=== PATIENT | male | born 1950 | race Caucasian/White ===

== ENCOUNTER 2018-10-20 13:29 | Inpatient (IN) | payer MEDICARE ==
[~2018-10-20] VITALS: Ht 167.6 cm; Wt 87.3 kg
[~2018-10-20 13:29] MED LIST: ASPI81EC PO; CITA20 PO; DOCU100 PO; HYDACE5 PO; INSN100I SC; LISI5 PO; METF500 PO; MULVITMINF PO; OXYC10ER PO; PHENY100ER PO; SIMV80 PO; SULI200 PO
[2018-10-20 14:01] LABS: BASOPHILS ABSOLUTE AUTO 0.02 K/mm3 (0.00-0.23); BASOPHILS PERCENT AUTO 0 % (0-2); EOSINOPHILS ABSOLUTE AUTO 0.02 K/mm3 (0.00-0.68); EOSINOPHILS PERCENT AUTO 0 % (0-6); Hematocrit 38.2 % (37.0-53.0); Hemoglobin 11.7 g/dL (13.5-17.5); IMMATURE GRAN ABSOLUTE AUTO 0.05 K/mm3 (0.00-0.10); IMMATURE GRAN PERCENT AUTO 1 % (0-1); LYMPHOCYTES ABSOLUTE AUTO 0.37 K/mm3 (0.84-5.20); LYMPHOCYTES PERCENT AUTO 4 % (21-46); MONOCYTES ABSOLUTE AUTO 1.04 K/mm3 (0.16-1.47); MONOCYTES PERCENT AUTO 12 % (4-13); Mean Corpuscular HGB 25.8 pg (26.0-34.0); Mean Corpuscular HGB Conc 30.6 g/dL (31.5-36.5); Mean Corpuscular Volume 84 fL (80-100); Mean Platelet Volume 9.7 fL (9.1-12.4); NEUTROPHILS ABSOLUTE AUTO 6.98 K/mm3 (1.96-9.15); NEUTROPHILS PERCENT AUTO 82 % (41-73); Platelet Count 186 K/mm3 (150-400); RDW Coefficient Variation 18.3 % (11.7-14.2); Red Blood Cell Count 4.54 M/mm3 (4.30-5.90); White Blood Cell Count 8.48 K/mm3 (4.00-11.30)
[2018-10-20 14:41] LABS: Alanine Aminotransfer (ALT/SGP 44 U/L (12-78); Albumin, Blood 2.3 g/dL (3.4-5.0); Albumin/Globulin Ratio 0.5 (0.8-1.8); Alk Phos 199 U/L (50-136); Anion Gap 4 mmol/L (6-16); Aspartate Aminotrans (AST/SGOT 37 U/L (12-37); Bilirubin, Total 0.8 mg/dL (0.1-1.0); Blood Urea Nitrogen 24 mg/dL (8-24); Bun/Creatinine Ratio 19.5 (12.0-20.0); CO2, Blood 30 mmol/L (21-32); Calcium, Blood 8.5 mg/dL (8.5-10.1); Chloride, Blood 98 mmol/L (98-108); Creatinine, Blood 1.23 mg/dL (0.60-1.20); Glomerular Filtration Rate >60 (60-); Glucose, Blood 141 mg/dL (70-99); Potassium, Blood 4.4 mmol/L (3.5-5.5); Sodium, Blood 132 mmol/L (136-145); Total Protein, Blood 7.3 g/dL (6.4-8.2)
[2018-10-20] MEDS ORDERED: DICLOFENAC SOD100 G1 TOP (15:06)
[2018-10-20] MEDS ORDERED: FLUO60T TOP (15:06)
[2018-10-20] MEDS ORDERED: FURO20 PO (15:07)
[2018-10-20] MEDS ORDERED: Glucose4 GM PO (15:08)
[2018-10-20] MEDS ORDERED: Loratadine10 MG PO (15:09)
[2018-10-20] MEDS ORDERED: Ketoconazole120 ML TOP (15:09)
[2018-10-20] MEDS ORDERED: LIDO700A20 TOP (15:09)
[2018-10-20] MEDS ORDERED: Mupirocin22 GM TOP (15:10)
[2018-10-20] MEDS ORDERED: METF500C PO (15:10)
[2018-10-20] MEDS ORDERED: LOSA50 PO (15:10)
[2018-10-20] MEDS ORDERED: POTA10T PO (15:11)
[2018-10-20] MEDS ORDERED: ROSU5 PO (15:11)
[2018-10-20 15:13] LABS: International Normalized Ratio 1.22; Prothrombin Time Results 12.7 Sec (9.7-11.5)
[2018-10-20] MEDS ORDERED: SPIR25 PO (17:30)
[2018-10-20 17:33] LABS: Automated BF RBC Count 0.005 M/mm3 (0-0); Automated BF WBC Count 0.975 K/mm3 (0-999); Body Fluid WBC Count 975 /mm3 (0-999); RBC Count, Body Fluid 5000 /mm3 (0-0)
[2018-10-20] MEDS ORDERED: BASAGLAR K100 UNIT/1 SC ×2 (17:33)
[2018-10-20 17:50] LABS: Albumin, Body Fluid 0.7 g/dL; Glucose, Body Fluid 141 mg/dL; Lactate Dehydrogenase, Body Fl 73 U/L; Protein, Body Fluid 1.7 g/dL
--- NOTE | 2018-10-20 17:52 | NUR ---
ADMIT NEW ER ADMIT THIS SHIFT WITH PERITONITIS. PT DID HAVE A PARACENTESIS TODAY AND REPORTS THEY TOOK OFF >5L. PT REPORTS FEELING BETTER. DENIES SOB AND LUNGS ARE CLEAR. PT DENIES PAIN. INDEP IN ROOM WITH BRP. MEPILEX PLACED TO COCCYX FOR OPEN WOUND AND PICTURES IN CHART. VSS. DAUGHTER AT BEDSIDE FOR SUPPORT. ORIENTED TO CALL LIGHT AND ROOM.
[2018-10-20 18:58] LABS: pH, Body Fluid 7.9
[2018-10-20 19:00] LABS: Appearance, Body Fluid Cloudy (Clear)
[2018-10-20 19:08] LABS: Total Cell Count, Body Fluid 200
--- NOTE | 2018-10-21 04:27 | NUR ---
FORM COVERER SUMMARY PT AAOX4 AND INDEPENDENT IN ROOM. DR JAVIER IN TO SEE PT AT START OF SHIFT. NEW ORDERS ADDED BY DR JAVIER INCLUDING NPO STATUS, PT WILL HAVE EGD AT 1400. PT REFUSED BEDTIME DOSE OF LANTUS. PT STATES HE HASN'T BEEN TAKING HIS INSULIN AT HOME BECAUSE HIS LEVELS HAVE BEEN GOOD AND THAT HE HAS HAD ISSUES WAKING UP IN THE MORNING HYPOGLYCEMIC. VSS, WILL CONTINUE TO MONITOR.
[2018-10-21 05:44] LABS: Anion Gap 3 mmol/L (6-16); Blood Urea Nitrogen 22 mg/dL (8-24); CO2, Blood 30 mmol/L (21-32); Calcium, Blood 8.7 mg/dL (8.5-10.1); Chloride, Blood 98 mmol/L (98-108); Creatinine, Blood 1.16 mg/dL (0.60-1.20); Glomerular Filtration Rate >60 (60-); Glucose, Blood 97 mg/dL (70-99); Potassium, Blood 4.2 mmol/L (3.5-5.5); Sodium, Blood 131 mmol/L (136-145)
[2018-10-21 05:52] LABS: Percent Saturation 17.6 % (20.0-50.0)
[2018-10-21 05:53] LABS: Alpha Feto Protein, Tumor Mkr 1.9 ng/mL (0.0-8.0)
--- NOTE | 2018-10-21 15:10 | NUR ---
History, Chart, Medications and Allergies reviewed before start of procedure. Lungs clear T/O to Auscultation. Pre-Op teaching done. Pt verbalizes understanding. Patient confirms NPO status and agrees with scheduled surgery. Daughter, Rashmi, at bedside.
--- NOTE | 2018-10-21 15:24 | NUR ---
10/21/18 1524 Jesus Garza History, Chart, Medications and Allergies reviewed before start of procedure.MONITOR INTACT WITH CONTINUOUS PULSE OXIMETRY AND INTERMITTENT BP.3-LEAD EKG REVIEWED WITH PHYSICIAN PRIOR TO START OF PROCEDURE.O2 VIA N/C INTACT THROUGHOUT SEDATION/PROCEDURE. Patient confirms NPO status and agrees with scheduled surgery.See Anesthesia record.
--- NOTE | 2018-10-21 17:40 | NUR ---
PATIENT IS ALERT AND ORIENTED AND COOPERATIVE WITH CARE. PATIENT HAD AN ENDOSCOPY PERFORMED THIS AFTERNOON AND PLANS ON HAVING A COLONOSCOPY TOMORROW AFTERNOON. NO COMPLAINTS OF PAIN TODAY. HIS ABDOMEN IS DISTENDED. HE WILL BEGIN ON CLEAR LIQUIDS TONIGHT, WATER ONLY AT 7AM AND THEN NPO AT 1300. WILL POST OP VITALS ARE WNL SO FAR. WILL CONTINUE TO MONITOR.
--- NOTE | 2018-10-21 21:31 | NUR ---
FEVER GREGORIO LIN NP MADE AWARE OF ONSET OF FEVER THIS EVENING. FEVER IS LOW GRADE, PT HAS SOME CHILLS. TYLENOL [address] ORDERED X[address]. PER [address]. CONCEPCION COLVIN OKAY FOR ACHES AND PAIN.
--- NOTE | 2018-10-22 04:25 | NUR ---
SHIFT SUMMARY PT WAS FEBRILE THIS SHIFT, 500 MG OF TYLENOL EFFECTIVE. GREGORIO NEVESCARMINEMIKE IS AWARE OF FEVER. PT AFEBRILE AT THIS TIME. PT TEMPERATURE MONITORED T/O SHIFT. PT PLESANT AND COOPERATIVE WITH STAFF. HE DENIES PAIN AND STATES HE HAS HAD RELIEF SINCE HIS PARACENTESIS TWO DAYS AGO. PT DENIES SOB. ABD STILL DISTENDED AT THIS TIME. PLAN IS FOR COLONOSCOPY TODAY, NPO AT NOON. WATER AND ICE CHIPS ONLY. PT HAS RESTED MOST OF THE NIGHT. VITALS STABLE. WILL CONTINUE TO MONITOR AND REPORT TO ONCOMING RN.
[2018-10-22 05:09] LABS: HBSAG SCREEN Negative (Negative); HCV ANTIBODY <0.1 (0.0-0.9); HEP B CORE AB, TOT Negative (Negative)
[2018-10-22 05:18] LABS: International Normalized Ratio 1.3; Prothrombin Time Results 13.5 Sec (9.7-11.5)
[2018-10-22 05:24] LABS: Anion Gap 8 mmol/L (6-16); Blood Urea Nitrogen 18 mg/dL (8-24); Bun/Creatinine Ratio 18.9 (12.0-20.0); CO2, Blood 26 mmol/L (21-32); Calcium, Blood 8.4 mg/dL (8.5-10.1); Chloride, Blood 100 mmol/L (98-108); Creatinine, Blood 0.95 mg/dL (0.60-1.20); Glomerular Filtration Rate >60 (60-); Glucose, Blood 114 mg/dL (70-99); Potassium, Blood 4.3 mmol/L (3.5-5.5); Sodium, Blood 134 mmol/L (136-145)
[2018-10-22 07:08] LABS: COMPLEMENT C3, SERUM 88 mg/dL (82-167); COMPLEMENT C4, SERUM 16 mg/dL (14-44)
[2018-10-22 13:07] LABS: ANTI-DSDNA ANTIBODIES 1 IU/mL (0-9); RNP ANTIBODIES 0.4 AI (0.0-0.9); SJOGREN'S ANTI-SS-A 0.3 AI (0.0-0.9); SJOGREN'S ANTI-SS-B <0.2 AI (0.0-0.9); SMITH ANTIBODIES <0.2 AI (0.0-0.9)
--- NOTE | 2018-10-22 14:55 | NUR ---
PT DENIES PAIN. DENIES N/V. SEVERE ABD DISTENTION. FIRM TO PALPATE. PT TOLERATED GOLYTELY. PT'S STOOL CLEAR LIQUID YELLOW WITH A COUPLE FLECKS OF STOOL. PT TO HAVE COLONOSCOPY TODAY. DENIES SOB. RESP E/U ON RA. PT'S IV LEAKING THIS AFTERNOON. PT HARD IV START. INDEPENDENT IN THE ROOM. NO OTHER SIGNIFICANT CHANGES. REPORT GIVEN TO LAURA STEWART.
--- NOTE | 2018-10-22 15:51 | NUR ---
PATIENT DOWN TO DAY SURGERY WITH NESTOR SANCHEZ FOR COLONOSCOPY. ALBUMIN RUNNING WHILE TRANFERRED
--- NOTE | 2018-10-22 15:52 | NUR ---
ASSUMED CARE OF PATIENT. I AGREE WITH PREVIOUS LIFT ELECTRICIAN. NO CHANGES FROM PREVIOUS ASSESSMENT.
--- NOTE | 2018-10-22 15:55 | NUR ---
FROM MED FLOOR TO [facility]. ADMISSION STARTED
--- NOTE | 2018-10-22 16:41 | NUR ---
10/22/18 1641 Parish Lindo Bite Block Placed. Patient to ENDO 1. See Anesthesia record
--- NOTE | 2018-10-22 17:29 | NUR ---
SHIFT SUMMARY PATIENT DOWN IN DAY SURGERY FOR COLONOSCOPY AT THIS TIME. HE HAS DENIED COMPLAINTS PRIOR TO DEPARTURE. RECIEVED A NEW IV VIA ULTRASOUND.
--- NOTE | 2018-10-23 03:09 | NUR ---
SHIFT SUMMARY PATIENT HAD NO ACUTE CHANGES OBSERVED THIS SHIFT. REPORTS RESTING FROM COLONOSCOPY PROCEDURE. AXOX 3 AND INDEPENDENT IN THE ROOM. PIV REMAINS INTACT. IV ALBUMIN INFUSED X ONE. TAKES MEDICATION WHOLE WITH WATER. DENIES PAIN, SOB, AND N/V. VSS/AFEBRILE. COOPERATIVE WITH CARE. CALL LIGHT IN REACH. BED IN LOWEST POSITION. WILL CONTINUE TO MONITOR UNTIL DAY SHIFT NURSE ASSUMES CARE.
[2018-10-23 05:17] LABS: BASOPHILS ABSOLUTE AUTO 0.02 K/mm3 (0.00-0.23); BASOPHILS PERCENT AUTO 0 % (0-2); EOSINOPHILS ABSOLUTE AUTO 0.01 K/mm3 (0.00-0.68); EOSINOPHILS PERCENT AUTO 0 % (0-6); Hematocrit 34.5 % (37.0-53.0); Hemoglobin 10.4 g/dL (13.5-17.5); IMMATURE GRAN ABSOLUTE AUTO 0.04 K/mm3 (0.00-0.10); IMMATURE GRAN PERCENT AUTO 1 % (0-1); LYMPHOCYTES ABSOLUTE AUTO 0.37 K/mm3 (0.84-5.20); LYMPHOCYTES PERCENT AUTO 5 % (21-46); MONOCYTES ABSOLUTE AUTO 1.03 K/mm3 (0.16-1.47); MONOCYTES PERCENT AUTO 12 % (4-13); Mean Corpuscular HGB 25.6 pg (26.0-34.0); Mean Corpuscular HGB Conc 30.1 g/dL (31.5-36.5); Mean Corpuscular Volume 85 fL (80-100); Mean Platelet Volume 10.1 fL (9.1-12.4); NEUTROPHILS ABSOLUTE AUTO 6.81 K/mm3 (1.96-9.15); NEUTROPHILS PERCENT AUTO 82 % (41-73); Platelet Count 149 K/mm3 (150-400); RDW Coefficient Variation 17.9 % (11.7-14.2); RDW Standard Deviation 54.7 fL (35.1-46.3); Red Blood Cell Count 4.07 M/mm3 (4.30-5.90); White Blood Cell Count 8.28 K/mm3 (4.00-11.30)
[2018-10-23 05:31] LABS: International Normalized Ratio 1.3; Prothrombin Time Results 13.5 Sec (9.7-11.5)
[2018-10-23 05:37] LABS: Alanine Aminotransfer (ALT/SGP 31 U/L (12-78); Albumin, Blood 3.1 g/dL (3.4-5.0); Albumin/Globulin Ratio 0.8 (0.8-1.8); Alk Phos 152 U/L (50-136); Anion Gap 8 mmol/L (6-16); Aspartate Aminotrans (AST/SGOT 31 U/L (12-37); Bilirubin, Total 0.8 mg/dL (0.1-1.0); Blood Urea Nitrogen 20 mg/dL (8-24); Bun/Creatinine Ratio 18.3 (12.0-20.0); CO2, Blood 27 mmol/L (21-32); Calcium, Blood 8.4 mg/dL (8.5-10.1); Chloride, Blood 99 mmol/L (98-108); Creatinine, Blood 1.09 mg/dL (0.60-1.20); Glomerular Filtration Rate >60 (60-); Glucose, Blood 98 mg/dL (70-99); Potassium, Blood 4.3 mmol/L (3.5-5.5); Sodium, Blood 134 mmol/L (136-145); Total Protein, Blood 7.1 g/dL (6.4-8.2)
[2018-10-23 12:05] LABS: Automated BF RBC Count 0.003 M/mm3 (0-0); Automated BF WBC Count 2.181 K/mm3 (0-999); Body Fluid WBC Count 2181 /mm3 (0-999); RBC Count, Body Fluid 3000 /mm3 (0-0)
[2018-10-23 12:14] LABS: Appearance, Body Fluid Cloudy (Clear); Color, Body Fluid Yellow (None-Yellow)
[2018-10-23 12:42] LABS: Total Cell Count, Body Fluid 200
--- NOTE | 2018-10-23 17:59 | NUR ---
SHIFT SUMMARY PT UP TO BATHROOM INDEPENDENTLY TODAY. WENT FOR PARACENTESIS WITH 3.8 L REMOVED. STATED HIS ABDOMEN FELT BETTER. DAUGHTER AT BEDSIDE MOST OF DAY. DID HAVE GENERALIZED DISCOMFORT AND OBTAINED ORDER. REPORTED IT FELT BETTER. HAS HAD NO FURTHER PROBLEMS TODAY.
--- NOTE | 2018-10-24 03:38 | NUR ---
SHIFT SUMMARY PATIENT HAD NO ACUTE CHANGES OBSERVED. AXOX 3 AND INDEPENDENT. ALBUMIN X 2 INFUSED AND IV ABX PER ORDERS. DR JAVIER IN ROOM AT SHIFT CHANGE. DAUGHTER AND FAMILY PRESENT. TAKES MEDICATION WHOLE WITH WATER. PIV REMAINS INTACT. VSS/AFEBRILE. LIDOCAINE PATCH OFF. DENIES PAIN AT THIS TIME. PATIENT REPORTS HE WAS HAPPY TO SLEEP IN 1.5-2 HR BLOCKS. COOPERATIVE WITH CARE. CALL LIGHT IN REACH. BED IN LOWEST POSITION. WILL CONTINUE TO MONITOR UNTIL DAY SHIFT NURSE ASSUMES CARE.
[2018-10-24 05:00] LABS: BASOPHILS ABSOLUTE AUTO 0.02 K/mm3 (0.00-0.23); BASOPHILS PERCENT AUTO 0 % (0-2); EOSINOPHILS ABSOLUTE AUTO 0.02 K/mm3 (0.00-0.68); EOSINOPHILS PERCENT AUTO 0 % (0-6); Hematocrit 34.5 % (37.0-53.0); Hemoglobin 10.6 g/dL (13.5-17.5); IMMATURE GRAN ABSOLUTE AUTO 0.04 K/mm3 (0.00-0.10); IMMATURE GRAN PERCENT AUTO 1 % (0-1); LYMPHOCYTES ABSOLUTE AUTO 0.27 K/mm3 (0.84-5.20); LYMPHOCYTES PERCENT AUTO 4 % (21-46); MONOCYTES ABSOLUTE AUTO 0.82 K/mm3 (0.16-1.47); MONOCYTES PERCENT AUTO 11 % (4-13); Mean Corpuscular HGB 26.2 pg (26.0-34.0); Mean Corpuscular HGB Conc 30.7 g/dL (31.5-36.5); Mean Corpuscular Volume 85 fL (80-100); Mean Platelet Volume 9.9 fL (9.1-12.4); NEUTROPHILS ABSOLUTE AUTO 6.09 K/mm3 (1.96-9.15); NEUTROPHILS PERCENT AUTO 84 % (41-73); Platelet Count 124 K/mm3 (150-400); RDW Coefficient Variation 18.3 % (11.7-14.2); RDW Standard Deviation 55.7 fL (35.1-46.3); Red Blood Cell Count 4.05 M/mm3 (4.30-5.90); White Blood Cell Count 7.26 K/mm3 (4.00-11.30)
[2018-10-24 05:19] LABS: International Normalized Ratio 1.28; Prothrombin Time Results 13.3 Sec (9.7-11.5)
[2018-10-24 05:25] LABS: Alanine Aminotransfer (ALT/SGP 30 U/L (12-78); Albumin, Blood 3.8 g/dL (3.4-5.0); Albumin/Globulin Ratio 1.1 (0.8-1.8); Alk Phos 133 U/L (50-136); Anion Gap 9 mmol/L (6-16); Aspartate Aminotrans (AST/SGOT 27 U/L (12-37); Bilirubin, Total 0.8 mg/dL (0.1-1.0); Blood Urea Nitrogen 19 mg/dL (8-24); Bun/Creatinine Ratio 19.9 (12.0-20.0); CO2, Blood 27 mmol/L (21-32); Calcium, Blood 8.4 mg/dL (8.5-10.1); Chloride, Blood 96 mmol/L (98-108); Creatinine, Blood 0.96 mg/dL (0.60-1.20); Globulin, Blood 3.6 g/dL (2.2-4.0); Glomerular Filtration Rate >60 (60-); Glucose, Blood 78 mg/dL (70-99); Potassium, Blood 4.1 mmol/L (3.5-5.5); Sodium, Blood 132 mmol/L (136-145); Total Protein, Blood 7.4 g/dL (6.4-8.2)
--- NOTE | 2018-10-24 16:55 | NUR ---
PATIENT A/OX4, UP INDEPENDENTLY IN ROOM. 20G IV TO R AC SL BETWEEN ABX. TOLERATING DIET. DENIES ANY PAIN. DRESSING TO COCCYX WOUND CHANGED AFTER SHOWER TODAY. FAMILY AT BEDSIDE FOR MOST OF THE SHIFT. PATIENT IS CALM AND COOPERATIVE WITH CARE AND CALLS APPROPRIATELY FOR ASSISTANCE.
--- NOTE | 2018-10-25 04:57 | NUR ---
SHIFT SUMMARY PT PLEASANT AND COOPERATIVE. SLEPT WELL THROUGHOUT THE NIGHT. NO COMPLAINTS OF PAIN. JUST SOME SLIGHT DISCOMFORT IN HIS ABD. ABD IS DISTENDED, BUT PT REPORTS IMPROVEMENT. NEW IV PLACED TO LAC DUE TO RAC IV LEAKING. MEPILEX NOTED TO COCCYX. REMAINS CLEAN, DRY, AND INTACT. PT REPORTS IMPROVEMENT ALSO IN STRENGTH. PT HAS BEEN AMBULATING INDEPENDENTLY TO THE RESTROOM WITH NO PROBLEMS. VITAL SIGNS HAVE BEEN STABLE. NO ACUTE CHANGES THIS SHIFT.
[2018-10-25 05:25] LABS: BASOPHILS ABSOLUTE AUTO 0.02 K/mm3 (0.00-0.23); BASOPHILS PERCENT AUTO 0 % (0-2); EOSINOPHILS ABSOLUTE AUTO 0.01 K/mm3 (0.00-0.68); EOSINOPHILS PERCENT AUTO 0 % (0-6); Hematocrit 34.2 % (37.0-53.0); Hemoglobin 10.4 g/dL (13.5-17.5); IMMATURE GRAN ABSOLUTE AUTO 0.02 K/mm3 (0.00-0.10); IMMATURE GRAN PERCENT AUTO 0 % (0-1); LYMPHOCYTES ABSOLUTE AUTO 0.31 K/mm3 (0.84-5.20); LYMPHOCYTES PERCENT AUTO 4 % (21-46); MONOCYTES ABSOLUTE AUTO 0.85 K/mm3 (0.16-1.47); MONOCYTES PERCENT AUTO 12 % (4-13); Mean Corpuscular HGB 25.9 pg (26.0-34.0); Mean Corpuscular HGB Conc 30.4 g/dL (31.5-36.5); Mean Corpuscular Volume 85 fL (80-100); NEUTROPHILS ABSOLUTE AUTO 5.94 K/mm3 (1.96-9.15); NEUTROPHILS PERCENT AUTO 83 % (41-73); Platelet Count 131 K/mm3 (150-400); RDW Coefficient Variation 18.1 % (11.7-14.2); RDW Standard Deviation 56.4 fL (35.1-46.3); Red Blood Cell Count 4.02 M/mm3 (4.30-5.90); White Blood Cell Count 7.15 K/mm3 (4.00-11.30)
[2018-10-25 05:42] LABS: International Normalized Ratio 1.36
[2018-10-25 06:10] LABS: Alanine Aminotransfer (ALT/SGP 37 U/L (12-78); Albumin, Blood 4.2 g/dL (3.4-5.0); Albumin/Globulin Ratio 1.2 (0.8-1.8); Alk Phos 134 U/L (50-136); Anion Gap 6 mmol/L (6-16); Aspartate Aminotrans (AST/SGOT 34 U/L (12-37); Bilirubin, Total 0.9 mg/dL (0.1-1.0); Blood Urea Nitrogen 21 mg/dL (8-24); Bun/Creatinine Ratio 20.8 (12.0-20.0); CO2, Blood 27 mmol/L (21-32); Calcium, Blood 8.9 mg/dL (8.5-10.1); Chloride, Blood 97 mmol/L (98-108); Creatinine, Blood 1.01 mg/dL (0.60-1.20); Globulin, Blood 3.4 g/dL (2.2-4.0); Glomerular Filtration Rate >60 (60-); Glucose, Blood 105 mg/dL (70-99); Potassium, Blood 4.7 mmol/L (3.5-5.5); Sodium, Blood 130 mmol/L (136-145); Total Protein, Blood 7.6 g/dL (6.4-8.2)
[2018-10-25 18:19] LABS: C DIFFICILE BY DNA AMP Positive (Negative)
--- NOTE | 2018-10-25 18:35 | NUR ---
PATIENT A/OX4, UP INDPENDENTLY IN ROOM. STOOL SAMPLE SENT TO LAB AND CAME BACK POSITIVE FOR C-DIFF. PATIENT PLACED IN CONTACT ENTERIC PRECAUTIONS. 20G IV TO L AC WNL AND SL. ROCEPHIN DAILY TO TREAT BACTERIAL PERITONITIS AND PO VANCO STARTED TO TREAT C-DIFF. PATIENT GIVEN TRAMADOL X1 THIS SHIFT TO BACK PAIN WITH GOOD RELIEF. PATIENT IS CALM AND COOPERATIVE WITH CARE AND USES CALL LIGHT APPROPRIATELY FOR ASSISTANCE.
--- NOTE | 2018-10-26 04:41 | NUR ---
SHIFT SUMMARY PT'S ABD APPEARS MORE DISTENDED THIS EVENING COMPARED TO YESTERDAY EVENING. PT DOES REPORT SOME MILD ABD DISCOMFORT BUT NO MORE THAN PREVIOUSLY. PT SLEPT THROUGH MUCH OF THE NIGHT. INDEPENDENT TO THE RESTROOM. REPORTED 3 LOOSE STOOLS TONIGHT. ORAL VANCO STARTED. OTHERWISE NO ACUTE CHANGES. VSS. WILL CONTINUE TO MONITOR AND REPORT TO DAY RN.
[2018-10-26 05:14] LABS: BASOPHILS ABSOLUTE AUTO 0.01 K/mm3 (0.00-0.23); BASOPHILS PERCENT AUTO 0 % (0-2); EOSINOPHILS ABSOLUTE AUTO 0.05 K/mm3 (0.00-0.68); EOSINOPHILS PERCENT AUTO 1 % (0-6); Hematocrit 32.7 % (37.0-53.0); Hemoglobin 10.4 g/dL (13.5-17.5); IMMATURE GRAN ABSOLUTE AUTO 0.03 K/mm3 (0.00-0.10); IMMATURE GRAN PERCENT AUTO 0 % (0-1); LYMPHOCYTES ABSOLUTE AUTO 0.28 K/mm3 (0.84-5.20); LYMPHOCYTES PERCENT AUTO 4 % (21-46); MONOCYTES ABSOLUTE AUTO 0.94 K/mm3 (0.16-1.47); MONOCYTES PERCENT AUTO 13 % (4-13); Mean Corpuscular HGB 26.2 pg (26.0-34.0); Mean Corpuscular HGB Conc 31.8 g/dL (31.5-36.5); Mean Platelet Volume 9.8 fL (9.1-12.4); NEUTROPHILS ABSOLUTE AUTO 6.04 K/mm3 (1.96-9.15); NEUTROPHILS PERCENT AUTO 82 % (41-73); Platelet Count 133 K/mm3 (150-400); RDW Coefficient Variation 18.1 % (11.7-14.2); RDW Standard Deviation 54.2 fL (35.1-46.3); Red Blood Cell Count 3.97 M/mm3 (4.30-5.90); White Blood Cell Count 7.35 K/mm3 (4.00-11.30)
[2018-10-26 05:18] LABS: Mean Corpuscular Volume 82 fL (80-100)
[2018-10-26 05:28] LABS: International Normalized Ratio 1.34; Prothrombin Time Results 13.8 Sec (9.7-11.5)
[2018-10-26 05:48] LABS: Alanine Aminotransfer (ALT/SGP 30 U/L (12-78); Albumin, Blood 3.8 g/dL (3.4-5.0); Albumin/Globulin Ratio 1.2 (0.8-1.8); Alk Phos 124 U/L (50-136); Anion Gap 11 mmol/L (6-16); Aspartate Aminotrans (AST/SGOT 29 U/L (12-37); Bilirubin, Total 0.8 mg/dL (0.1-1.0); Blood Urea Nitrogen 29 mg/dL (8-24); Bun/Creatinine Ratio 28.7 (12.0-20.0); CO2, Blood 24 mmol/L (21-32); Calcium, Blood 8.9 mg/dL (8.5-10.1); Chloride, Blood 95 mmol/L (98-108); Creatinine, Blood 1.01 mg/dL (0.60-1.20); Globulin, Blood 3.3 g/dL (2.2-4.0); Glomerular Filtration Rate >60 (60-); Glucose, Blood 92 mg/dL (70-99); Potassium, Blood 4.4 mmol/L (3.5-5.5); Sodium, Blood 130 mmol/L (136-145); Total Protein, Blood 7.1 g/dL (6.4-8.2)
[2018-10-26] MEDS ORDERED: FURO40 PO (13:07)
[2018-10-26] MEDS ORDERED: Aldactone100 MG PO (13:13)
[2018-10-26] MEDS ORDERED: VANCOCIN HCL125 MG PO (13:14)
[2018-10-26] MEDS ORDERED: Florastor250 MG PO (13:17)
[2018-10-26] MEDS ORDERED: CIPR500 PO (13:19)
--- NOTE | 2018-10-26 15:00 | NUR ---
PATIENT D/C'D TO HOME WITH DAUGHTER. RX MEDICATIONS FAXED TO [facility] AND SCRIPT FOR 8 CAPSULES OF VANCOMYCIN [facility]. D/C INSTRUCTIONS AND EDUCATION DISCUSSED WITH PATIENT AND DAUGHTER AND COPY PROVIDED. PATIENT DENIES ANY FURTHER QUESTIONS OR CONCERNS.
== END 2018-10-26 15:21 | disposition home or self-care (01) | DRG 372 ==
LOC: ER 13:29 → MEDS 15:01 → ERHOLD 15:01 → MEDS 16:55 → ENPENDDIS 10-26 11:08 → MEDS 10-26 15:21
PROVIDERS: Internal Medicine Gastroenterology; Physician Assistant; ADMIT Internal Medicine
PROC: 0W9G3ZZ Drainage of Peritoneal Cavity, Percutaneous Approach (ICD-10-PCS; 2018-10-20)
PROC: 0DD68ZX Extraction of Stomach, Via Natural or Artificial Opening Endoscopic, Diagnostic (ICD-10-PCS; 2018-10-21)
PROC: 0DBM8ZX Excision of Descending Colon, Via Natural or Artificial Opening Endoscopic, Diagnostic (ICD-10-PCS; 2018-10-21)
PROC: 0DDB8ZX Extraction of Ileum, Via Natural or Artificial Opening Endoscopic, Diagnostic (ICD-10-PCS; 2018-10-21)
PROC: 0DD98ZX Extraction of Duodenum, Via Natural or Artificial Opening Endoscopic, Diagnostic (ICD-10-PCS; principal; 2018-10-21 15:30)
DX: K65.2 Spontaneous bacterial peritonitis (principal); K76.6 Portal hypertension; E87.1 Hypo-osmolality and hyponatremia; I85.00 Esophageal varices without bleeding; A04.72 Enterocolitis due to Clostridium difficile, not specified as recurrent; E11.9 Type 2 diabetes mellitus without complications; I10 Essential (primary) hypertension; Z79.4 Long term (current) use of insulin; K74.60 Unspecified cirrhosis of liver; Z87.891 Personal history of nicotine dependence; E78.5 Hyperlipidemia, unspecified; F43.10 Post-traumatic stress disorder, unspecified; K75.81 Nonalcoholic steatohepatitis (NASH); Z68.33 Body mass index [BMI] 33.0-33.9, adult; K31.9 Disease of stomach and duodenum, unspecified; K63.5 Polyp of colon; D17.5 Benign lipomatous neoplasm of intra-abdominal organs; K57.30 Diverticulosis of large intestine without perforation or abscess without bleeding; K64.8 Other hemorrhoids; K55.20 Angiodysplasia of colon without hemorrhage; K52.9 Noninfective gastroenteritis and colitis, unspecified; D63.8 Anemia in other chronic diseases classified elsewhere
CPT/HCPCS: 36415; 49083; 80048; 80053; 82042; 82103; 82104; 82105; 82728; 82945; 82947; 83516; 83540; 83550; 83615; 83986; 84157; 85025; 85610; 86038; 86160; 86225; 86235; 86317; 86704; 86708; 86803; 87015; 87070; 87102; 87116; 87205; 87206; 87324; 87340; 87493; 88108; 88305; 88342; 89051; 96365-59; 96366-59; 96375-59; 99285-25; J0696; J2704; J7120; P9046

== ENCOUNTER 2018-11-02 13:22 | Inpatient (IN) | payer MEDICARE ==
[~2018-11-02] VITALS: Ht 170.2 cm; Wt 84.8 kg
[~2018-11-02 13:22] MED LIST changes: +Aldactone100 MG PO; +BASAGLAR K100 UNIT/1 SC; +CIPR500 PO; +DICLOFENAC SOD100 G1 TOP; +FLUO60T TOP; +FURO20 PO; +FURO40 PO; +Florastor250 MG PO; +Glucose4 GM PO; +Ketoconazole120 ML TOP; +LIDO700A20 TOP; +LOSA50 PO; +Loratadine10 MG PO; +METF500C PO; +Mupirocin22 GM TOP; +POTA10T PO; +ROSU5 PO; +SPIR25 PO; +VANCOCIN HCL125 MG PO
[2018-11-02 14:14] LABS: BASOPHILS ABSOLUTE AUTO 0.02 K/mm3 (0.00-0.23); BASOPHILS PERCENT AUTO 0 % (0-2); EOSINOPHILS PERCENT AUTO 0 % (0-6); Hematocrit 34.1 % (37.0-53.0); Hemoglobin 12.1 g/dL (13.5-17.5); IMMATURE GRAN ABSOLUTE AUTO 0.11 K/mm3 (0.00-0.10); IMMATURE GRAN PERCENT AUTO 1 % (0-1); LYMPHOCYTES ABSOLUTE AUTO 0.28 K/mm3 (0.84-5.20); LYMPHOCYTES PERCENT AUTO 2 % (21-46); MONOCYTES PERCENT AUTO 9 % (4-13); Mean Corpuscular HGB 29.6 pg (26.0-34.0); Mean Corpuscular HGB Conc 35.5 g/dL (31.5-36.5); Mean Corpuscular Volume 83 fL (80-100); Mean Platelet Volume 9.9 fL (9.1-12.4); NEUTROPHILS ABSOLUTE AUTO 11.94 K/mm3 (1.96-9.15); NEUTROPHILS PERCENT AUTO 88 % (41-73); Platelet Count 278 K/mm3 (150-400); RDW Coefficient Variation 20.1 % (11.7-14.2); RDW Standard Deviation 50.6 fL (35.1-46.3); Red Blood Cell Count 4.09 M/mm3 (4.30-5.90); White Blood Cell Count 13.55 K/mm3 (4.00-11.30)
[2018-11-02 14:33] LABS: Albumin, Blood 3.2 g/dL (3.4-5.0); Albumin/Globulin Ratio 0.7 (0.8-1.8); Bilirubin, Total 0.7 mg/dL (0.1-1.0); Bun/Creatinine Ratio 30.8 (12.0-20.0); Calcium, Blood 8.8 mg/dL (8.5-10.1); Creatinine, Blood 2.86 mg/dL (0.60-1.20); Globulin, Blood 4.5 g/dL (2.2-4.0); Potassium, Blood 5.7 mmol/L (3.5-5.5); Total Protein, Blood 7.7 g/dL (6.4-8.2)
[2018-11-02] MEDS ORDERED: Bactrim Ds Tab1 EACH PO (15:51)
[2018-11-02] MEDS ORDERED: LIDO700A20 TOP (15:52)
[2018-11-02] MEDS ORDERED: ACET500 PO (15:53)
--- NOTE | 2018-11-02 17:53 | NUR ---
PT ADMITTED PT ADMITTED AT 1740. PT & FAMILY ORIENTED TO ROOM. CALL LIGHT IN REACH. PT HR ELEVATED AT 117. OTHER VITALS STABLE. DR. GREEN CALLED & NOTIFIED. EKG & TELE ORDERED. ACHS & LOW SLIDING SCALE ORDERED. WILL CONTINUE TO MONITOR.
[2018-11-02 20:15] LABS: Bun/Creatinine Ratio 34.1 (12.0-20.0); Calcium, Blood 8.1 mg/dL (8.5-10.1); Creatinine, Blood 2.58 mg/dL (0.60-1.20); Potassium, Blood 5.6 mmol/L (3.5-5.5)
--- NOTE | 2018-11-03 03:20 | NUR ---
NOC SHIFT SUMMARY PT ADMITTED ON PREVIOUS SHIFT FOR ARF, DIARRHEA, AND SEPSIS. HE IS AAOX4 RESP ARE EVEN AND UNLABORED. TELE ON AND PER WOOD FLOUR MILLER IS PRESENTLY SINUS RHYTHM AT 90. PLEASANT AND COOPERATIVE WITH CARE. DAUGHTER IS STAYING THE NIGHT IN ROOM WITH PT. HE HAS HAD NUMEROUS EPISODES OF DIARRHEA THIS NIGHT EVERY FEW HOURS HE IS UP TO THE TOILET AGAIN. HE IS CONTINENT. TREATED PER EMAR FOR ACHES AND PAINS WITH TYLENOL. AT PRESENT HE IS LAYING BACK IN BED AND APPEARS IN NO ACUTE DISTRESS. VSS. WILL CONTINUE TO MONITOR.
[2018-11-03 08:39] LABS: Bun/Creatinine Ratio 35.5 (12.0-20.0); Calcium, Blood 6.8 mg/dL (8.5-10.1); Creatinine, Blood 2.14 mg/dL (0.60-1.20)
--- NOTE | 2018-11-03 17:36 | NUR ---
SUMMARY PT IS A/O X4, PLEASANT/COOPERATIVE AFFECT, UP TO BR IND. STATE POOR APPETITE, BREEDER SERVICE TECHNICIAN IN TODAY ADD NUTRITION SUPPLEMENT DRINKS TO TRAYS. C-DIFF ISOLATION CLEARED TODAY. HE STATE STOOLS PARTLY FORMED, LESS FREQUENT. HX CIRRHOSIS, ASCITES. ABD FIRM, ROUND, DISTENDED. GI CONSULT w DR ROJAS THIS AFTERNOON. DX NIRANJAN, GFR 33, NA+ LOW @ 131, DR GREEN ORDER NEPHRO CONSULT w DR CINTRON, IN TO SEE HIM THIS AFTERNOON, CHANGE IVF TO 1/2 NS @ 125 ML/HR. VSS.
[2018-11-03 18:21] LABS: Albumin, Blood 2.9 g/dL (3.4-5.0); Anion Gap 12 mmol/L (6-16); Blood Urea Nitrogen 83 mg/dL (8-24); Bun/Creatinine Ratio 35.6 (12.0-20.0); CO2, Blood 15 mmol/L (21-32); Calcium, Blood 8.3 mg/dL (8.5-10.1); Chloride, Blood 96 mmol/L (98-108); Creatinine, Blood 2.33 mg/dL (0.60-1.20); Glomerular Filtration Rate 30 (60-); Glucose, Blood 119 mg/dL (70-99); Phosphorus, Blood 3.2 mg/dL (2.5-4.9); Sodium, Blood 123 mmol/L (136-145)
[2018-11-03 19:30] LABS: Bilirubin, Urine Neg (Neg); Blood, Urine 1+ (Neg); Glucose Qualitative, Urine Neg (Neg); Ketones, Urine Neg (Neg); Leukocyte Esterase, Urine Neg (Neg); Nitrite, Urine Neg (Neg); Protein, Urine 1+ (Neg); Specific Gravity, Urine 1.015 (1.003-1.022); Urobilinogen, Urine NORM (Normal)
[2018-11-03 19:31] LABS: Appearance, Urine Clear (Clear); Color, Urine Yellow (P-Yellow)
[2018-11-03 19:36] LABS: Bacteria Mod /hpf; Squamous Epithelial Cells Rare /hpf (Few); White Blood Cells, Urine 0-2 /hpf (0-5)
[2018-11-04 01:12] LABS: Adenovirus F 40/41 Not Detected (NOT DETECT); Astrovirus Not Detected (NOT DETECT); Campylobacter Sp Not Detected (NOT DETECT); Cryptosporidium Not Detected (NOT DETECT); Cyclospora Cayetanensis Not Detected (NOT DETECT); E. Coli O157 Not Detected (NOT DETECT); Entamoeba Histolytica Not Detected (NOT DETECT); Enteroaggregative E. coli-EAEC Not Detected (NOT DETECT); Enteropathogenic E. coli-EPEC Not Detected (NOT DETECT); Enterotoxigenic E. coli-ETEC Not Detected (NOT DETECT); Giardia Lamblia Not Detected (NOT DETECT); Norovirus GI/GII Not Detected (NOT DETECT); Plesiomonas Shigelloides Not Detected (NOT DETECT); Rotavirus A Not Detected (NOT DETECT); Salmonella Sp Not Detected (NOT DETECT); Sapovirus Not Detected (NOT DETECT); Shiga Toxin-prod E. coli-STEC Not Detected (NOT DETECT); Shigella/Enteroin E. coli-EIEC Not Detected (NOT DETECT); Vibrio Cholerae Not Detected (NOT DETECT); Vibrio Sp Not Detected (NOT DETECT); Yersinia Enterocolitica Not Detected (NOT DETECT)
[2018-11-04 04:41] LABS: BASOPHILS ABSOLUTE AUTO 0.01 K/mm3 (0.00-0.23); BASOPHILS PERCENT AUTO 0 % (0-2); EOSINOPHILS ABSOLUTE AUTO 0.02 K/mm3 (0.00-0.68); EOSINOPHILS PERCENT AUTO 0 % (0-6); Hematocrit 33.6 % (37.0-53.0); Hemoglobin 10.9 g/dL (13.5-17.5); IMMATURE GRAN PERCENT AUTO 1 % (0-1); LYMPHOCYTES ABSOLUTE AUTO 0.19 K/mm3 (0.84-5.20); LYMPHOCYTES PERCENT AUTO 2 % (21-46); MONOCYTES ABSOLUTE AUTO 0.78 K/mm3 (0.16-1.47); MONOCYTES PERCENT AUTO 7 % (4-13); Mean Corpuscular HGB 26.2 pg (26.0-34.0); Mean Corpuscular HGB Conc 32.4 g/dL (31.5-36.5); Mean Corpuscular Volume 81 fL (80-100); Mean Platelet Volume 9.5 fL (9.1-12.4); NEUTROPHILS ABSOLUTE AUTO 9.38 K/mm3 (1.96-9.15); NEUTROPHILS PERCENT AUTO 90 % (41-73); Platelet Count 171 K/mm3 (150-400); RDW Standard Deviation 51.8 fL (35.1-46.3); Red Blood Cell Count 4.16 M/mm3 (4.30-5.90); White Blood Cell Count 10.48 K/mm3 (4.00-11.30)
[2018-11-04 05:02] LABS: Albumin, Blood 3.4 g/dL (3.4-5.0); Albumin/Globulin Ratio 0.9 (0.8-1.8); Bilirubin, Total 0.7 mg/dL (0.1-1.0); Bun/Creatinine Ratio 35.5 (12.0-20.0); Calcium, Blood 8.4 mg/dL (8.5-10.1); Creatinine, Blood 2.17 mg/dL (0.60-1.20); Globulin, Blood 3.6 g/dL (2.2-4.0); Potassium, Blood 4.8 mmol/L (3.5-5.5)
[2018-11-04 05:06] LABS: Thyroid Stimulating Hormone 0.587 uIU/mL (0.360-4.800)
--- NOTE | 2018-11-04 06:33 | NUR ---
SHIFT SUMMARY NO ACUTE EVENTS OVERNIGHT. PATIENT UP AD LUCERO IN ROOM TO BATHROOM. PATIENT IV BEGAN LEAKING AND A NEW IV STARTED. PATIENT PLEASANT WITH NO COMPLAINTS.
[2018-11-04 12:34] LABS: Automated BF RBC Count 0.003 M/mm3 (0-0); Automated BF WBC Count 0.461 K/mm3 (0-999); Body Fluid WBC Count 461 /mm3 (0-999); RBC Count, Body Fluid 3000 /mm3 (0-0)
[2018-11-04 13:08] LABS: Appearance, Body Fluid Hazy (Clear); Color, Body Fluid Yellow (None-Yellow)
[2018-11-04 13:41] LABS: Total Cell Count, Body Fluid 100
--- NOTE | 2018-11-04 18:03 | NUR ---
SUMMARY PT IS A/O X4, IND IN ROOM. PLEASANT/COOPERATIVE AFFECT. HE STATE POOR SLEEP LAST, STATE FATIGUE T/O DAY. HE HAS TRIED TO NAP BUT HAS HAD MANY FAMILY, FRIENDS VISIT. APPROX 1100 TODAY HE WENT OUT TO RADIOLOGY FOR US GUIDED PARACENTESIS, 4.5L TAKEN OFF. HE STATE ABD "FULLNESS", TENDERNESS RELIEF. DR CINTRON IN TO SEE HIM THIS AFTERNOON, NO NEW ORDERS, NS CONTINUES @ 75 ML/HR. DR ROJAS IN LATE AFTERNOON, ORDER ALBUMEN. ACCURATE STANDING WT OBTAINED THIS AM PRIOR TO PARACENTESIS. ACCURATE I&O'S DIFFICULT TO OBTAIN D/T BOWEL HABITS. VSS.
[2018-11-05 04:43] LABS: BASOPHILS PERCENT AUTO 0 % (0-2); EOSINOPHILS PERCENT AUTO 0 % (0-6); Hematocrit 34.2 % (37.0-53.0); IMMATURE GRAN ABSOLUTE AUTO 0.12 K/mm3 (0.00-0.10); IMMATURE GRAN PERCENT AUTO 1 % (0-1); LYMPHOCYTES ABSOLUTE AUTO 0.23 K/mm3 (0.84-5.20); LYMPHOCYTES PERCENT AUTO 2 % (21-46); MONOCYTES ABSOLUTE AUTO 0.85 K/mm3 (0.16-1.47); MONOCYTES PERCENT AUTO 7 % (4-13); Mean Corpuscular HGB Conc 32.2 g/dL (31.5-36.5); Mean Corpuscular Volume 81 fL (80-100); Mean Platelet Volume 9.6 fL (9.1-12.4); NEUTROPHILS ABSOLUTE AUTO 11.25 K/mm3 (1.96-9.15); NEUTROPHILS PERCENT AUTO 90 % (41-73); Platelet Count 212 K/mm3 (150-400); RDW Coefficient Variation 18.3 % (11.7-14.2); RDW Standard Deviation 52.7 fL (35.1-46.3); Red Blood Cell Count 4.23 M/mm3 (4.30-5.90); White Blood Cell Count 12.45 K/mm3 (4.00-11.30)
--- NOTE | 2018-11-05 05:01 | NUR ---
SHIFT SUMMARY PATEINT SLEPT OFF AND ON THROUGH THE NIGHT. ABD WITH SEVERE DISTENTION AFTER 4.5L REMOVED YESTERDAY WITH PARACENTESIS. PATIENT HAD NO COMPLAINTS OR CONCERNS. IV PATENT WITH NO S/S OF INFILTRATION/INFECTION.
[2018-11-05 05:05] LABS: Alanine Aminotransfer (ALT/SGP 31 U/L (12-78); Albumin, Blood 3.6 g/dL (3.4-5.0); Albumin/Globulin Ratio 1.1 (0.8-1.8); Alk Phos 191 U/L (50-136); Anion Gap 9 mmol/L (6-16); Aspartate Aminotrans (AST/SGOT 26 U/L (12-37); Bilirubin, Total 0.8 mg/dL (0.1-1.0); Blood Urea Nitrogen 65 mg/dL (8-24); Bun/Creatinine Ratio 33.3 (12.0-20.0); CO2, Blood 18 mmol/L (21-32); Calcium, Blood 8.5 mg/dL (8.5-10.1); Chloride, Blood 100 mmol/L (98-108); Creatinine, Blood 1.95 mg/dL (0.60-1.20); Globulin, Blood 3.4 g/dL (2.2-4.0); Glomerular Filtration Rate 36 (60-); Glucose, Blood 117 mg/dL (70-99); Magnesium, Blood 2.1 mg/dL (1.6-2.4); Phosphorus, Blood 2.5 mg/dL (2.5-4.9); Potassium, Blood 5.3 mmol/L (3.5-5.5); Sodium, Blood 127 mmol/L (136-145)
[2018-11-05 05:12] LABS: Percent Saturation 12.4 % (20.0-50.0)
--- NOTE | 2018-11-05 17:15 | NUR ---
DR VEGA NOTIFIED EARLIER REGARDING PT BEING TACHY AT 120, DR VEGA ORDERED PROPRANOLOL BUT DR ROJAS LATER DC'D IT. PT REMAINS TACHY AT 119, SPOKE WITH DR VEGA WHO HAS ORDERED METOPROLOL 12.5MG PO BID AT THIS TIME.
--- NOTE | 2018-11-05 17:21 | NUR ---
SHIFT SUMMARY- PT A/OX4 BUT DROWSY T/O MOST OF THE DAY, PT AWAKES TO VERBAL STIMULI BUT FALLS ASLEEP DURING CONVERSATION. PT INDEP TO BATHROOM. PT CONT TO HAVE LOOSE BM'S. ABD DISTENDED. LS CLEAR, ON RA. PT TACHY AT 120, STARTED ON PO METOPROLOL. POOR PO INTAKE, GLUCERNA GIVEN. PT REMAINS ON NS AT 75ML/HR, ALBUMIN GIVEN TODAY. PT DENIES ANY PAIN OR OTHER COMPLAINTS T/O THE DAY. NO OTHER ACUTE CHANGES THIS SHIFT.
[2018-11-06 05:45] LABS: BASOPHILS ABSOLUTE AUTO 0.01 K/mm3 (0.00-0.23); BASOPHILS PERCENT AUTO 0 % (0-2); EOSINOPHILS PERCENT AUTO 0 % (0-6); Hematocrit 38.9 % (37.0-53.0); Hemoglobin 12.3 g/dL (13.5-17.5); IMMATURE GRAN ABSOLUTE AUTO 0.15 K/mm3 (0.00-0.10); IMMATURE GRAN PERCENT AUTO 1 % (0-1); LYMPHOCYTES ABSOLUTE AUTO 0.28 K/mm3 (0.84-5.20); LYMPHOCYTES PERCENT AUTO 2 % (21-46); MONOCYTES ABSOLUTE AUTO 1.01 K/mm3 (0.16-1.47); MONOCYTES PERCENT AUTO 6 % (4-13); Mean Corpuscular HGB 25.6 pg (26.0-34.0); Mean Corpuscular HGB Conc 31.6 g/dL (31.5-36.5); Mean Corpuscular Volume 81 fL (80-100); Mean Platelet Volume 9.6 fL (9.1-12.4); NEUTROPHILS ABSOLUTE AUTO 14.43 K/mm3 (1.96-9.15); NEUTROPHILS PERCENT AUTO 91 % (41-73); Platelet Count 209 K/mm3 (150-400); RDW Coefficient Variation 18.6 % (11.7-14.2); RDW Standard Deviation 53.3 fL (35.1-46.3); Red Blood Cell Count 4.81 M/mm3 (4.30-5.90); White Blood Cell Count 15.88 K/mm3 (4.00-11.30)
[2018-11-06 06:01] LABS: Albumin, Blood 3.8 g/dL (3.4-5.0); Anion Gap 10 mmol/L (6-16); Blood Urea Nitrogen 69 mg/dL (8-24); Bun/Creatinine Ratio 39.9 (12.0-20.0); CO2, Blood 18 mmol/L (21-32); Calcium, Blood 8.8 mg/dL (8.5-10.1); Chloride, Blood 99 mmol/L (98-108); Creatinine, Blood 1.73 mg/dL (0.60-1.20); Glomerular Filtration Rate 42 (60-); Glucose, Blood 122 mg/dL (70-99); Phosphorus, Blood 2.8 mg/dL (2.5-4.9); Potassium, Blood 5.1 mmol/L (3.5-5.5); Sodium, Blood 127 mmol/L (136-145)
--- NOTE | 2018-11-06 09:13 | NUR ---
CALLED ABOUT INDIGESTION WITH PATIENT NORMALLT TAKING TUMS OR ROLAIDS AT HOME. OK TO ORDER. ALSO ADVISED; APPEARS DEPRESSED, POSSIBLE ASCITES WORSE THAN BEFORE PERICENTESIS AND HEART RATE RUNNING HIGH 90'S TO 100-120. GIVEN LOPRESSOR. NO FURTHER ORDERS.
--- NOTE | 2018-11-06 17:49 | NUR ---
ALERT. ORIENTED. DROWSEY. POOR APPETITE. AWARE OF TACHY HEART RATE <110. INDEPENDENT IN ROOM TO BATHROOM. ABD APPEARS LITTLE BIGGER THAN BEGINNING OF SHIFT. AWARE OF POSSIBLE ANOTHER PERICENTESIS. IV PATENT. MEDICATED FOR PAIN W/TYLENOL W/GOOD RESULTS. WCTM.
--- NOTE | 2018-11-07 03:26 | NUR ---
SHIFT SUMMARY PT CONTINUES TO HAVE FREQUENT LOOSE STOOLS. PT IS ALERT, ORIENTED, AND UP TO THE BATHROOM INDEPENDENTLY. FLUIDS CONTINUE TO RUN ORDERED. IV HAS BEEN RESECURED, BC WHEN PT WAS TOILETING HIMSELF, HE PULLED THE PLUG OUT OF THE UNUSED IV PORT AND BLED A BIT. IV DRESSING WAS CHANGED AND THE OLD TUBING WAS REPLACED. ASCITES IS STILL PRESENT. NO COMPLAINTS OF SOB. VSS. WILL CONTINUE TO MONITOR.
[2018-11-07 05:14] LABS: BASOPHILS ABSOLUTE AUTO 0.01 K/mm3 (0.00-0.23); BASOPHILS PERCENT AUTO 0 % (0-2); EOSINOPHILS PERCENT AUTO 0 % (0-6); Hematocrit 35.1 % (37.0-53.0); Hemoglobin 11.1 g/dL (13.5-17.5); IMMATURE GRAN ABSOLUTE AUTO 0.24 K/mm3 (0.00-0.10); IMMATURE GRAN PERCENT AUTO 1 % (0-1); LYMPHOCYTES ABSOLUTE AUTO 0.21 K/mm3 (0.84-5.20); LYMPHOCYTES PERCENT AUTO 1 % (21-46); MONOCYTES ABSOLUTE AUTO 1.01 K/mm3 (0.16-1.47); MONOCYTES PERCENT AUTO 6 % (4-13); Mean Corpuscular HGB 26.2 pg (26.0-34.0); Mean Corpuscular HGB Conc 31.6 g/dL (31.5-36.5); Mean Corpuscular Volume 83 fL (80-100); Mean Platelet Volume 9.8 fL (9.1-12.4); NEUTROPHILS ABSOLUTE AUTO 15.22 K/mm3 (1.96-9.15); NEUTROPHILS PERCENT AUTO 91 % (41-73); Platelet Count 188 K/mm3 (150-400); RDW Coefficient Variation 19.4 % (11.7-14.2); RDW Standard Deviation 54.7 fL (35.1-46.3); Red Blood Cell Count 4.24 M/mm3 (4.30-5.90); White Blood Cell Count 16.69 K/mm3 (4.00-11.30)
[2018-11-07 05:42] LABS: Albumin/Globulin Ratio 0.8 (0.8-1.8); Bilirubin, Total 0.8 mg/dL (0.1-1.0); Bun/Creatinine Ratio 43.9 (12.0-20.0); Calcium, Blood 8.5 mg/dL (8.5-10.1); Creatinine, Blood 1.89 mg/dL (0.60-1.20); Globulin, Blood 3.6 g/dL (2.2-4.0); Potassium, Blood 5.1 mmol/L (3.5-5.5); Total Protein, Blood 6.6 g/dL (6.4-8.2)
[2018-11-07 10:22] LABS: Appearance, Urine Clear (Clear); Bilirubin, Urine Neg (Neg); Blood, Urine 1+ (Neg); Color, Urine Yellow (P-Yellow); Glucose Qualitative, Urine Neg (Neg); Ketones, Urine Neg (Neg); Leukocyte Esterase, Urine 1+ (Neg); Nitrite, Urine Neg (Neg); Protein, Urine 2+ (Neg); Urobilinogen, Urine NORM (Normal)
[2018-11-07 10:34] LABS: Bacteria Few /hpf; Red Blood Cells, Urine 0-2 /hpf (0-2); Squamous Epithelial Cells Few /hpf (Few); White Blood Cells, Urine 0-2 /hpf (0-5)
[2018-11-07 10:35] LABS: Amorphous Light (0-Heavy); Granular Casts 25-50 /lpf (0); Hyaline Casts 0-2 /lpf (0-2); Transitional Epithelial Cells Rare /hpf (0-Rare)
--- NOTE | 2018-11-07 11:03 | NUR ---
DR.GARG KNIGHT CAN NOT GET ACCURATE OUTPUT PATIENT HAS DIARRHEA AND THEN WILL URINATE AT THE SAME TIME.
[2018-11-07 14:46] LABS: Body Fluid WBC Count 370 /mm3 (0-999)
[2018-11-07 16:02] LABS: RBC Count, Body Fluid 798 /mm3 (0-0)
[2018-11-07 16:04] LABS: Color, Body Fluid Yellow (None-Yellow)
[2018-11-07 16:05] LABS: Appearance, Body Fluid Hazy (Clear)
[2018-11-07 16:42] LABS: Total Cell Count, Body Fluid 100
--- NOTE | 2018-11-07 17:56 | NUR ---
PATIENT ALERT. HAD ALMOST 5 L DRAINED OFF ABD. UPON RETURN TO ROOM PATIENT WENT INTO BATHROOM FOR "DIARRHEA." RN AND EDUCATION CONSULTANT CHECKED ON PATIENT OFTEN. PATIENT STS "EVERYTIME I WIPE, I HAVE TO DRIBBLE MORE." REFUSED TO GET UP OFF TOILET. WHEN RN TOLD PATIENT HE HAD TO, "I CAN'T MY LEGS ARE ASLEEP." 2 PERSON ASSIST TO STAND AND BACK TO BED. GIVEN ANTIDIARRHEA MEDS. GOOD APPETITE FOR BREAKFAST AND LUNCH. WCTM.
--- NOTE | 2018-11-08 04:14 | NUR ---
SHIFT SUMMARY PT REALLY SLOW TO RESPOND THIS SHIFT AND NEEDS MULTIPLE PROMPTS TO GET OUT OF BED TO THE BED SIDE COMMODE. UPON REVIEW OF CHART, NO LABS WERE ORDERED FOR THIS MORNING. DR. LEPE WAS CALLED AND NOTIFIED OF PT'S MENTAL STATUS AND MORNING LABS WERE ORDERED. PT HAD BED ALARM ON ALL NIGHT, BED ALARM IN LOW POSITION. PT CONTINUES TO BE INCONTIENT ALSO. NO LOOSE STOOLS NOTED THIS SHIFT. WILL CONTINUE TO MONITOR PT.
[2018-11-08 04:28] LABS: BASOPHILS ABSOLUTE AUTO 0.01 K/mm3 (0.00-0.23); BASOPHILS PERCENT AUTO 0 % (0-2); EOSINOPHILS ABSOLUTE AUTO 0.01 K/mm3 (0.00-0.68); EOSINOPHILS PERCENT AUTO 0 % (0-6); Hematocrit 29.9 % (37.0-53.0); Hemoglobin 9.8 g/dL (13.5-17.5); IMMATURE GRAN ABSOLUTE AUTO 0.12 K/mm3 (0.00-0.10); IMMATURE GRAN PERCENT AUTO 1 % (0-1); LYMPHOCYTES ABSOLUTE AUTO 0.16 K/mm3 (0.84-5.20); LYMPHOCYTES PERCENT AUTO 1 % (21-46); MONOCYTES ABSOLUTE AUTO 0.86 K/mm3 (0.16-1.47); MONOCYTES PERCENT AUTO 6 % (4-13); Mean Corpuscular HGB 26.8 pg (26.0-34.0); Mean Corpuscular HGB Conc 32.8 g/dL (31.5-36.5); Mean Corpuscular Volume 82 fL (80-100); Mean Platelet Volume 9.9 fL (9.1-12.4); NEUTROPHILS ABSOLUTE AUTO 12.95 K/mm3 (1.96-9.15); NEUTROPHILS PERCENT AUTO 92 % (41-73); Platelet Count 158 K/mm3 (150-400); RDW Coefficient Variation 18.8 % (11.7-14.2); Red Blood Cell Count 3.66 M/mm3 (4.30-5.90); White Blood Cell Count 14.11 K/mm3 (4.00-11.30)
[2018-11-08 04:48] LABS: Albumin, Blood 2.7 g/dL (3.4-5.0); Anion Gap 10 mmol/L (6-16); Blood Urea Nitrogen 86 mg/dL (8-24); Bun/Creatinine Ratio 46.7 (12.0-20.0); CO2, Blood 12 mmol/L (21-32); Calcium, Blood 8.3 mg/dL (8.5-10.1); Chloride, Blood 105 mmol/L (98-108); Creatinine, Blood 1.84 mg/dL (0.60-1.20); Glomerular Filtration Rate 39 (60-); Glucose, Blood 99 mg/dL (70-99); Phosphorus, Blood 3.3 mg/dL (2.5-4.9); Potassium, Blood 5.5 mmol/L (3.5-5.5); Sodium, Blood 127 mmol/L (136-145)
--- NOTE | 2018-11-08 11:50 | NUR ---
PT APPEARS WEAK/FATIGUED, TREMULOUS. RESPONDS SLOWLY TO QUESTIONS. FAMILY STATE DECREASE IN MENTATION FROM PREVIOUS DAY. NOC RN REPORT AMMONIA LEVEL ELEVATED @ 101. LACTULOSE STARTED EARLY THIS AM APPROX 0530. UP TO BR 1 ASSIST w FWW/GB HOWEVER YET NO BM. DR CINTRON & DR MOREIRA IN TO SEE PT, ADDRESS FAMILY QUESTIONS/CONCERNS.
--- NOTE | 2018-11-08 12:56 | NUR ---
Clinical Visit: Called to room to discuss goals of care. Daughter, Rashmi, is present. She is expressing dismay over how her father looks at this time. She states that the pt and herself have had a conversation in the past regarding end of life. He has expressed to her that he would only want to be resusitated in the event that he would make a full recovery. She states that she would like to uphold his wishes and make him comfortable. Discussed changing his care plan to a comfort care plan. Reviewed discontinuing medications that do not contribute to his overall comfort. She wishes to discontinue antibiotics, IV fluids and other medications that do not effect his immediate comfort. Discussed with nurse Francisco. Updated on conversation with daughter. Call placed to Dr. Moise. Comfort orders placed. Hospice consult placed. Will remain available. Will return when able to see if comfort medications are effective.
--- NOTE | 2018-11-08 13:51 | NUR ---
PT CONTINUES RESTLESS, MENTATION DECREASING, UNABLE TO ANSWER WHEN SPOKEN TO. PT DAUGHTER KATHERIN & OTHER FAMILY @ BEDSIDE STATE NEED FOR COMFORT CARE MEASURES. PALLIATIVE CARE RN & DR VEGA NOTIFIED. CODE STATUS CHANGED TO DNR, COMFORT CARE ORDERS PLACED. ROXANOL 10MG & ATIVAN 1MG GIVEN FOR PAIN/ANXIETY RELIEF. WOLFE CATH PLACED. PT ASSISTED w REPOSITIONING. FAMILY REASSURED @ THIS TIME.
--- NOTE | 2018-11-08 16:32 | NUR ---
SUMMARY PT PLACED ON COMFORT CARE BY DR VEGA TODAY AFTER DR CINTRON & DR MOREIRA SPOKE W PT'S DAUGHTER SUMMER ABOUT DX & TX. PALLIATIVE CARE RN WAS IN TO SEE DAUGHTER & ANSWER QUESTIONS R/T COMFORT CARE/HOSPICE. CODE STATUS CHANGED TO DNR. PT MENTATION DECLINED STEADILY THIS AM, HE WAS VERY LETHARGIC, FLAT, RESTLESS @ ONSET OF SHIFT, PAINFUL. RESPONSES SLOW, CONFUSED. ONCE CC ORDERS RECIEVED MEDICATED W ROXANOL & ATIVAN, RESTLESSNESS & S/S PAIN HAVE DECREASED. HE HAS STEADILY BECAME LESS RESPONSIVE. THIS AFTERNOON NONRESPONSIVE, BREATHING DEEP, LABORED. HAVE GIVEN ROXANOL FOR RELIEF/CONTROL OF SYMPTOMS. MULT SUPPORTIVE FAMILY @ BEDSIDE. CC CART PROVIDED.
--- NOTE | 2018-11-09 03:26 | NUR ---
SHIFT SUMMARY PT HAS APPEARED TO BE COMFORTABLE ALL SHIFT. PT'S BREATHING HAS BEEN GETTING SLOWER THE SHIFT PROGRESSES. DAUGHTER REMAINS AT BEDSIDE. ROXANOL GIVEN PER DAUGHTERS WISHES EVERY NOW AND THEN. PT TOLERATES ROXANOL WELL. NO OTHER SIGNS OF DISCOMFORT OF YET. WILL CONTINUE TO MONITOR AND ENSURE PT COMFORT.
--- NOTE | 2018-11-09 07:32 | NUR ---
PT NONRESPONSIVE. HR TACHY 100-120. DEEP, GURGLING BREATHS APPROX 12/MIN. SKIN CLAMMY. DAUGHTER & FRIEND @ BEDSIDE. REASSURANCE PROVIDED. ROXANOL GIVEN PER FAMILY FOR COMFORT. ATROPINE GTTS PROVIDED. PT REPOSITIONED FOR COMFORT. WILL CONTINUE TO MX & PROVIDE COMFORT CARE. FAMILY STATE NO NEEDS @ THIS TME
--- NOTE | 2018-11-09 07:51 | NUR ---
PT w DAUGHTER & FRIEND MYRA @ BEDSIDE 0968. ADIS RN & NURSE MATTVR NOTIFIED. IV & YANETH D/C'D. FAMILY EXPRESS GRATITUDE.
--- NOTE | 2018-11-09 08:02 | NUR ---
NURSE SUPVR UP TO ASSIST FAMILY W ARRANGEMENTS, STATE WILL NOTIFY DR OF . FAMILY OUT TO GATHER NEEDED PAPERWORK R/T PT WISHES.
== END 2018-11-09 10:50 | DRG 441 ==
LOC: ER 13:22 → MEDS 15:54 → ENPENDDIS 11-09 07:45 → MEDS 11-09 10:50
PROVIDERS: Emergency Medicine; Family Medicine; Internal Medicine; Internal Medicine Gastroenterology; ADMIT Internal Medicine
PROC: 0W9G3ZX Drainage of Peritoneal Cavity, Percutaneous Approach, Diagnostic (ICD-10-PCS; principal; 2018-11-04)
PROC: 0W9G3ZX Drainage of Peritoneal Cavity, Percutaneous Approach, Diagnostic (ICD-10-PCS; 2018-11-07)
DX: K76.7 Hepatorenal syndrome (principal); A41.9 Sepsis, unspecified organism; K65.2 Spontaneous bacterial peritonitis; N17.9 Acute kidney failure, unspecified; K76.6 Portal hypertension; K57.92 Diverticulitis of intestine, part unspecified, without perforation or abscess without bleeding; E87.1 Hypo-osmolality and hyponatremia; I85.10 Secondary esophageal varices without bleeding; A04.72 Enterocolitis due to Clostridium difficile, not specified as recurrent; R18.8 Other ascites; Z51.5 Encounter for palliative care; K74.60 Unspecified cirrhosis of liver; Z87.891 Personal history of nicotine dependence; E11.22 Type 2 diabetes mellitus with diabetic chronic kidney disease; I12.9 Hypertensive chronic kidney disease with stage 1 through stage 4 chronic kidney disease, or unspecified chronic kidney disease; N18.9 Chronic kidney disease, unspecified; D63.1 Anemia in chronic kidney disease; K75.81 Nonalcoholic steatohepatitis (NASH); E78.5 Hyperlipidemia, unspecified; E87.5 Hyperkalemia; Z79.84 Long term (current) use of oral hypoglycemic drugs; F43.10 Post-traumatic stress disorder, unspecified
CPT/HCPCS: 0097U; 36415; 49083; 71045; 80048; 80053; 80069; 81001; 82140; 82728; 82947; 83540; 83550; 83690; 83735; 83935; 84100; 84145; 84300; 84443; 84550; 85025; 85651; 86140; 87040; 87070; 87086; 87205; 87493; 89051; 93005; 93010; 96365; 96372-59; 97110; 97162; 97164; 97166; 97530; 97535; 99284-25; J0692; J1644; J2060; J2354; J7030; J7070; P9046